=== PATIENT | male | born 1965 | race Caucasian/White ===

== ENCOUNTER 2020-07-05 17:10 | Emergency (ER) | payer BC ==
[~2020-07-05] VITALS: Ht 185.4 cm; Wt 113.4 kg
== END 2020-07-05 18:36 | disposition home or self-care (01) ==
LOC: ED 17:10
DX: S01.21XA Laceration without foreign body of nose, initial encounter (principal); W22.8XXA Striking against or struck by other objects, initial encounter; Z23 Encounter for immunization
CPT/HCPCS: 12013; 90471; 90715; 99282-25